=== PATIENT | male | born 1975 ===

== ENCOUNTER 2017-01-02 08:58 | Day surgery (SDC) | payer OTHER ==
[2017-01-02 09:30] VITALS: BMI 27.4
[2017-01-02 09:39] VITALS: RESP 20; TEMP 97; O2SAT 100
--- NOTE | 2017-01-02 10:53 | CP.SDSHP ---
Same Day Surgery H & P - History Proposed Procedure: colonoscopy Pre-Op Diagnosis: h/o colitis - Allergies Allergies: Allergies No Known Allergies Allergy (Verified 12/17/14 16:23) - Current Medications Current Medications: see med list - Physical Exam Vital Signs: Vital Signs 01/02/17 09:32 Temperature 97 F L Pulse Rate 80 Respiratory 20 Rate Blood Pressure 99/66 L O2 Sat by Pulse 100 Oximetry Mental Status: Alert & Oriented x3 Heart: WNL Lungs: WNL GI: WNL - {Optional Preform as Required} Abdomen: WNL - Impression Impression: 41 year old male who presents for follow up of colitis, for colonoscopy evaluation Pt. Evaluated Today:Candidate for Anesthesia & Procedure: Yes - Date & Time Date: 01/02/17 Time: 10:53 Short Stay Discharge - Short Stay Discharge Admitting Diagnosis/Reason for Visit: GASTROENTERITIS / COLITIS / DIVERTICULITIS Disposition: HOME/ ROUTINE
[2017-01-02] MEDS ORDERED: Propofol 10 mg/ml Inj (20 ML) ONE ×2 (10:55)
[2017-01-02 12:15] VITALS: BP 100/59; PULSE 67
== END 2017-01-02 12:30 | disposition home or self-care (01) ==
LOC: C.ENDO 08:58
PROVIDERS: ATTEND Internal Medicine Gastroenterology
DX: K52.89 Other specified noninfective gastroenteritis and colitis (principal); Z87.19 Personal history of other diseases of the digestive system; K57.30 Diverticulosis of large intestine without perforation or abscess without bleeding; K64.8 Other hemorrhoids
CPT/HCPCS: 45380; 88305; 88313; 88342; J2704

== ENCOUNTER 2017-09-20 17:47 | Emergency (ER) | payer OTHER ==
[2017-09-20 18:45] VITALS: BMI 24.9
[2017-09-20 18:50] VITALS: RESP 18
[2017-09-20 20:22] LABS: BASO % 0.5 % (0.0-2.0); EOS # 0.1 K/uL (0.0-0.7); EOS % 1.3 % (0.0-4.0); HEMOGLOBIN 15.5 g/dL (12.0-18.0); LYMPH # 3.2 K/uL (1.0-4.3); LYMPH % 37.7 % (20.0-40.0); MEAN CELL VOLUME 87.3 fL (80.0-94.0); MEAN CORPUSCULAR HEMOGLOBIN 29.8 pg (27.0-31.0); MEAN CORPUSCULAR HGB CONC 34.1 g/dL (33.0-37.0); MEAN PLATELET VOLUME 8.7 fL (7.2-11.7); MONO # 0.6 K/uL (0.0-0.8); MONO % 7.7 % (0.0-10.0); NEUT # 4.4 K/uL (1.8-7.0); NEUT % 52.8 % (50.0-75.0); NRBC % 0.1 % (0.0-2.0); RBC 5.22 Mil/uL (4.40-5.90); RED CELL DISTRIBUTION WIDTH 13.7 % (11.5-14.5); WHITE BLOOD COUNT 8.4 K/uL (4.8-10.8)
[2017-09-20 20:46] LABS: ALB/GLOB RATIO 1.6 (1.0-2.1); ALBUMIN 4.3 g/dL (3.5-5.0); ALT/SGPT 18 U/L (21-72); AST/SGOT 26 U/L (17-59); BLOOD UREA NITROGEN 16 mg/dL (9-20); CALCIUM 9.3 mg/dl (8.6-10.4); GFR AFRICAN-AMERICAN > 60; GFR NON-AFRICAN AMERICAN > 60
--- NOTE | 2017-09-20 20:48 | C.PDOC ---
History Of Present Illness 65 y/o male presents to the ER complaining of generalized headache, ongoing for over 1 year but progressively worsening. States he has episodes where he feels hot and develops stabbing pain. Then he feels a pressure which comes and goes spontaneously. Lately patient reports associated numbness to left side of face, heaviness to right arm, inability to concentrate, and vision seems blurry. Symptoms specifically have worsened over the past week. Patient had an MRI about 1 year ago that was unremarkable. Has been seen by ENT, Neurology, and the clinic for these complaints. 2 weeks ago he had a CT of sinuses done. Blood work done has also been unremarkable. Patient states he felt pressure in his head and took 's blood pressure med last week, and felt better. Patients blood pressure has never been high at any doctors visit. PMD: Dr. Danitza Jacobo Time Seen by Provider: 09/20/17 19:51 Chief Complaint (Nursing): Weakness/Neurological Deficit History Per: Patient History/Exam Limitations: no limitations Onset/Duration Of Symptoms: Days (> 1 year) Current Symptoms Are (Timing): Still Present Quality: Pressure, "Pain" Associated Symptoms: Blurred Vision Past Medical History Reviewed: Historical Data, Nursing Documentation, Vital Signs Vital Signs: Last Vital Signs Temp 98.1 F 09/20/17 18:45 Pulse 93 H 09/20/17 18:45 Resp 18 09/20/17 19:30 BP 119/73 09/20/17 18:45 Pulse Ox 100 09/20/17 20:53 - Medical History PMH: Diverticulitis, Gastritis Denies: Chronic Kidney Disease Surgical History: Endoscopy - [facility] Procedures FLEXIBLE SIGMOIDOSCOPY (02/11/15) Family History: States: Unknown Family Hx - Social History Hx Tobacco Use: No Hx Alcohol Use: No Hx Substance Use: No - Immunization History Hx Tetanus Toxoid Vaccination: Yes Hx Influenza Vaccination: No Hx Pneumococcal Vaccination: No Review Of Systems Except As Marked, All Systems Reviewed And Found Negative. Constitutional: Negative for: Fever Respiratory: Negative for: Shortness of Breath Gastrointestinal: Negative for: Vomiting Musculoskeletal: Positive for: Other (right arm heaviness). Negative for: Neck Pain Neurological: Positive for: Numbness (to left side of face), Headache, Dizziness , Other (difficulty concentrating) Physical Exam - Physical Exam Appears: Non-toxic, No Acute Distress Skin: Normal Color, Warm, Dry Head: Atraumatic, Normacephalic Eye(s): bilateral: Normal Inspection, PERRL, EOMI Nose: Normal Oral Mucosa: Moist Neck: Normal ROM, Supple Chest: Symmetrical Cardiovascular: Rhythm Regular, No Murmur Respiratory: Normal Breath Sounds, No Accessory Muscle Use Gastrointestinal/Abdominal: Normal Exam, Soft, No Tenderness Back: Normal Inspection, No Vertebral Tenderness Extremity: Bilateral: Atraumatic, Normal Color And Temperature, Normal ROM Neurological/Psych: Oriented x3, Normal Speech, Normal Cranial Nerves, Normal Motor, Normal Sensation Gait: Steady ED Course And Treatment - Laboratory Results Result Diagrams: 09/20/17 20:19 09/20/17 20:19 Lab Interpretation: No Acute Changes O2 Sat by Pulse Oximetry: 100 (RA) Pulse Ox Interpretation: Normal Reevaluation Time: 22:09 Reassessment Condition: Improved (after IV fluids and IV Decadron) Medical Decision Making Medical Decision Making: Time: 20:03 Initial Plan: --CMP --CBC --Decadron inj 10 mg IV --Reevaluation Disposition Counseled Patient/Family Regarding: Studies Performed, Diagnosis, Need For Followup - Disposition Referrals: [facility] [Outside] Disposition: HOME/ ROUTINE Disposition Time: 22:15 Condition: IMPROVED Additional Instructions: Follow up with your neurologist for additional work up. Instructions: Headache, Adult (DC) Forms: [facility] (Kyrgyz) - Clinical Impression Clinical Impression: Headache - Scribe Statement The provider has reviewed the documentation as recorded by the Scribe (Shante Erickson) Provider Attestation: All medical record entries made by the Scribe were at my direction and personally dictated by me. I have reviewed the chart and agree that the record accurately reflects my personal performance of the history, physical exam, medical decision making, and the department course for this patient. I have also personally directed, reviewed, and agree with the discharge instructions and disposition.
[2017-09-20 22:19] VITALS: BP 107/69; PULSE 86; TEMP 97.9; O2SAT 97
== END 2017-09-20 22:29 | disposition home or self-care (01) ==
LOC: C.ER 17:47
DX: R51 Headache (principal)
CPT/HCPCS: 80053; 85025; 96374; 99285; J1100

== ENCOUNTER 2018-02-20 17:37 | Emergency (ER) | payer OTHER ==
[2018-02-20 17:38] VITALS: BMI 26.2
[2018-02-20 17:45] VITALS: RESP 20; O2SAT 99
[2018-02-20 19:52] LABS: BASO % 0.5 % (0.0-2.0); EOS # 0.1 K/uL (0.0-0.7); EOS % 1.2 % (0.0-4.0); HEMOGLOBIN 15.2 g/dL (12.0-18.0); LYMPH # 2.8 K/uL (1.0-4.3); LYMPH % 37.6 % (20.0-40.0); MEAN CORPUSCULAR HEMOGLOBIN 29.1 pg (27.0-31.0); MEAN CORPUSCULAR HGB CONC 33.4 g/dL (33.0-37.0); MEAN PLATELET VOLUME 8.8 fL (7.2-11.7); MONO # 0.6 K/uL (0.0-0.8); MONO % 8.6 % (0.0-10.0); NEUT # 3.9 K/uL (1.8-7.0); NEUT % 52.1 % (50.0-75.0); NRBC % 0.2 % (0.0-2.0); RBC 5.21 Mil/uL (4.40-5.90); RED CELL DISTRIBUTION WIDTH 13.4 % (11.5-14.5); WHITE BLOOD COUNT 7.4 K/uL (4.8-10.8)
[2018-02-20 20:00] LABS: INR 1.1; PROTHROMBIN TIME 11.5 SECONDS (9.7-12.2)
[2018-02-20 20:03] LABS: ALB/GLOB RATIO 1.8 (1.0-2.1); ALBUMIN 4.3 g/dL (3.5-5.0); ALT/SGPT 23 U/L (21-72); AST/SGOT 13 U/L (17-59); BLOOD UREA NITROGEN 11 mg/dL (9-20); GFR AFRICAN-AMERICAN > 60; GFR NON-AFRICAN AMERICAN > 60
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
[2018-02-20] MEDS ORDERED: Albuterol-Ipratrop 3 mg / 0.5 (3 ml) UD INH STA (23:45)
[2018-02-21] MEDS ORDERED: Albuterol-Ipratrop 3 mg / 0.5 (3 ml) UD ONE (00:07)
[2018-02-21 01:21] VITALS: BP 112/71; PULSE 85; TEMP 98
--- NOTE | 2018-02-21 08:47 | RAD ---
Date of service: 02/20/2018 HISTORY: chest pain COMPARISON: No prior. TECHNIQUE: Chest PA and lateral FINDINGS: LUNGS: No active pulmonary disease. PLEURA: No significant pleural effusion identified. No pneumothorax apparent. CARDIOVASCULAR: Normal. OSSEOUS STRUCTURES: No significant abnormalities. VISUALIZED UPPER ABDOMEN: Normal. OTHER FINDINGS: None. IMPRESSION: No acute cardiopulmonary disease appreciated.
--- NOTE | 2018-02-21 21:28 | CARD ---
APPROVED REPORT Date of service: 02/20/2018 EKG Measurement Heart [id number] <Conclusion> Normal sinus rhythm Left axis deviation Abnormal ECG
== END 2018-02-21 01:21 | disposition home or self-care (01) ==
LOC: C.ER 17:37
DX: S29.011A Strain of muscle and tendon of front wall of thorax, initial encounter (principal); X58.XXXA Exposure to other specified factors, initial encounter; R07.89 Other chest pain
CPT/HCPCS: 71046; 80053; 83880; 84484; 85025; 85378; 85610; 85730; 93005; 96372; 99284; J1885

== ENCOUNTER 2018-08-23 08:24 | Outpatient (CLI) | payer SELFPAY, OTHER | END 2018-08-23 08:25 | disposition home or self-care (01) | LOC: C.MRIC 08:24 | DX: M25.561 Pain in right knee (principal) ==

== ENCOUNTER 2018-12-05 18:45 | Outpatient (CLI) | payer SELFPAY | END 2018-12-05 18:46 | disposition home or self-care (01) | LOC: C.SLEEP 18:46 | DX: G47.33 Obstructive sleep apnea (adult) (pediatric) (principal) ==